=== PATIENT | female | born 1965 | race Caucasian/White ===

== ENCOUNTER 2017-10-10 12:41 | Day surgery (SDC) | payer BC ==
[~2017-10-10] VITALS: Ht 172.7 cm; Wt 110.2 kg
[~2017-10-10 12:41] MED LIST: Amlodipine Bes2.5 MG PO; CLON.5 PO; CLON1 PO; GLIM2 PO; Glucophage1000 MG PO; LEVSOD100 PO; LISI5 PO; METF500 PO; NAPR500 PO; Naprosyn500 MG PO; OXCA300 PO; Oxcarbazepine600 MG PO; PRAVASTATIN SOD10 MG PO; PREG75 PO; PROZAC20 MG PO; Prinivil10 MG PO; Prozac40 MG PO; SYNTHROID25 MCG PO; Sprintec1 EACH PO; Zofran Odt4 MG SL
== END 2017-10-10 14:25 | disposition home or self-care (01) ==
LOC: ORSCSDS 12:41
PROVIDERS: Internal Medicine Gastroenterology
PROC: 0DJD8ZZ Inspection of Lower Intestinal Tract, Via Natural or Artificial Opening Endoscopic (ICD-10-PCS; principal; 2017-10-10 14:00)
DX: Z12.11 Encounter for screening for malignant neoplasm of colon (principal); K57.30 Diverticulosis of large intestine without perforation or abscess without bleeding; E11.9 Type 2 diabetes mellitus without complications; F41.8 Other specified anxiety disorders; I10 Essential (primary) hypertension; E78.5 Hyperlipidemia, unspecified; Z79.84 Long term (current) use of oral hypoglycemic drugs; E66.9 Obesity, unspecified; Z68.41 Body mass index [BMI] 40.0-44.9, adult; Z79.899 Other long term (current) drug therapy
CPT/HCPCS: 82947

== ENCOUNTER → 2019-08-02 | Outpatient (CLI) | payer OTHER ==
[2019-08-02 12:50] LABS: Source, Urine Clean Catch
[2019-08-02 13:52] LABS: Bilirubin, Urine Neg (Neg); Blood, Urine Neg (Neg); Glucose Qualitative, Urine 4+ (Neg); Ketones, Urine Neg (Neg); Leukocyte Esterase, Urine Neg (Neg); Nitrite, Urine Neg (Neg); Protein, Urine Neg (Neg); Urobilinogen, Urine NORM (Normal)
[2019-08-02 14:01] LABS: Appearance, Urine Clear (Clear); Color, Urine Pale Yellow (P-Yellow)
== END | disposition home or self-care (01) ==
LOC: LAB SHORT 12:48 → OLS 12:48 → LAB FUT 07-14 16:05 → EDSTATUS 07-14 16:05
PROVIDERS: Nurse Practitioner Family
DX: E11.9 Type 2 diabetes mellitus without complications (principal)
CPT/HCPCS: 81003; 82043

== ENCOUNTER → 2022-12-30 | Outpatient (CLI) | payer BC | LOC: LAB SHORT 14:43 → LAB 14:43 | DX: R10.2 Pelvic and perineal pain (principal) | CPT/HCPCS: 87077; 87086; 87186 ==